=== PATIENT | female | born 1975 | race American Indian/Alaskan Native ===

== ENCOUNTER 2021-06-05 18:39 | Emergency (ER) | payer SELFPAY ==
[2021-06-05 18:48] VITALS: BP 155/95
[2021-06-05] MEDS ORDERED: CETIRIZINE 10 MG TAB PO ONE (21:31)
[2021-06-05] MEDS ORDERED: predniSONE 50 MG TAB PO ONE (21:31)
[2021-06-05] MEDS ORDERED: diphenhydrAMINE 25 MG CAP PO ONE (21:31)
[2021-06-05] MEDS ORDERED: ACETAMINOPHEN 325 MG TAB PO ONE (21:32)
--- NOTE | 2021-06-05 21:53 | Emergency Department Report ---
- General Chief Complaint: Nosebleed Stated Complaint: NOSE BLEED Source: patient Mode of arrival: Ambulatory Limitations: No Limitations - History of Present Illness Initial Comments: Patient is a 45-year-old -Armenian female with no past medical history presented to the ED with complaint of acute onset persistent recurrent nasal and sinus congestion, frontal sinus pressure and intermittent nosebleeds for the last 1 week, worse in the last 2 days. Patient states that the nosebleed occurs in the morning when she blows her nose, and as a result the bleeding continued for at least an hour before it stops. Patient states that in the process she continues to spit up some bloody mucus after the bleeding stops. Patient states that at night she experiences significant nasal congestion and sinus pressure. Patient denies dizziness, syncope, headache, chest pain, fever, chills, cough, nausea and vomiting or sore throat. MD Complaint: rhinorrhea, nasal congestion, sinus pain, other (nosebleed) -: Sudden Severity: moderate Severity scale (0 -10): 6 Quality: dull, aching Consistency: constant Improves With: nothing Worsens With: nothing Associated Symptoms: denies other symptoms, rhinorrhea, nasal congestion, epistaxis. denies: fever, chills, myalgias, diaphoresis, sore throat, stiff neck, cough, chest pain, shortness of breath, abdominal pain, nausea, diarrhea, dysuria, confusion, hoarseness, ear pain, other Treatments Prior to Arrival: none - Related Data Previous Rx's Medication Instructions Recorded Last Taken Type Amoxicillin [Amoxicillin TAB] 875 mg PO Q12H #20 06/05/21 Unknown Rx Cetirizine HCl [Zyrtec 10mg tab] 10 mg PO DAILY #30 06/05/21 Unknown Rx Fluticasone [Flonase] 1 spray NS QDAY #1 bottle 06/05/21 Unknown Rx Ibuprofen [Motrin] 600 mg PO Q8H PRN #20 tablet 06/05/21 Unknown Rx Allergies Allergy/AdvReac Type Severity Reaction Status Date / Time No Known Allergies Allergy Verified 06/05/21 18:45 ED Review of Systems ROS: Stated complaint: NOSE BLEED Other details as noted in HPI Constitutional: denies: chills, fever Eyes: denies: eye pain, eye discharge, vision change ENT: epistaxis, congestion, other (Frontal sinus pressure). denies: ear pain, throat pain Respiratory: denies: cough, shortness of breath, wheezing Cardiovascular: denies: chest pain, palpitations Endocrine: no symptoms reported Gastrointestinal: denies: abdominal pain, nausea, vomiting, diarrhea Genitourinary: denies: urgency, dysuria, discharge Musculoskeletal: denies: back pain, joint swelling, arthralgia Skin: denies: rash, lesions Neurological: denies: headache, weakness, paresthesias Psychiatric: denies: anxiety, depression Hematological/Lymphatic: denies: easy bleeding, easy bruising ED Past Medical Hx - Past Medical History Previous Medical History?: No - Surgical History Past Surgical History?: No - Medications Home Medications: Home Medications Medication Instructions Recorded Confirmed Last Taken Type Amoxicillin [Amoxicillin TAB] 875 mg PO Q12H #20 06/05/21 Unknown Rx Cetirizine HCl [Zyrtec 10mg tab] 10 mg PO DAILY #30 06/05/21 Unknown Rx Fluticasone [Flonase] 1 spray NS QDAY #1 bottle 06/05/21 Unknown Rx Ibuprofen [Motrin] 600 mg PO Q8H PRN #20 tablet 06/05/21 Unknown Rx ED Physical Exam - General Limitations: No Limitations General appearance: alert, in no apparent distress - Head Head exam: Present: atraumatic, normocephalic, normal inspection - Eye Eye exam: Present: normal appearance, PERRL, EOMI Pupils: Present: normal accommodation - ENT ENT exam: Present: normal orophraynx, mucous membranes moist, TM's normal bilaterally, normal external ear exam, other (Grossly congested nasal passages) - Neck Neck exam: Present: normal inspection, full ROM. Absent: tenderness - Respiratory Respiratory exam: Present: normal lung sounds bilaterally. Absent: respiratory distress, wheezes, rhonchi, stridor, chest wall tenderness, accessory muscle use, decreased breath sounds, prolonged expiratory - Cardiovascular Cardiovascular Exam: Present: regular rate, normal rhythm, normal heart sounds. Absent: systolic murmur, diastolic murmur, rubs, gallop - GI/Abdominal GI/Abdominal exam: Present: soft, normal bowel sounds. Absent: tenderness, guarding, rebound, organomegaly, mass - Extremities Exam Extremities exam: Present: normal inspection, full ROM, normal capillary refill - Back Exam Back exam: Present: normal inspection, full ROM. Absent: tenderness, CVA tenderness (R), CVA tenderness (L), muscle spasm, paraspinal tenderness, vertebral tenderness - Neurological Exam Neurological exam: Present: alert, oriented X3, CN II-XII intact, normal gait, reflexes normal - Psychiatric Psychiatric exam: Present: normal affect, normal mood - Skin Skin exam: Present: warm, dry, intact, normal color. Absent: rash ED Course Vital Signs 06/05/21 18:47 Temperature 98.8 F Pulse Rate 76 Respiratory 18 Rate Blood Pressure 155/95 O2 Sat by Pulse 100 Oximetry ED Medical Decision Making - Medical Decision Making This is a 45-year-old -Armenian female with no past medical history presented to the ED with complaint of acute onset persistent recurrent nasal and sinus congestion, frontal sinus pressure and intermittent nosebleeds for the last 1 week, worse in the last 2 days. Patient states that the nosebleed occurs in the morning when she blows her nose, and as a result the bleeding continued for at least an hour before it stops. Patient states that in the process she continues to spit up some bloody mucus after the bleeding stops. Patient states that at night she experiences significant nasal congestion and sinus pressure. In the ED, patient is alert and oriented x3 and is not in any distress. Patient history and physical exam findings, the patient was treated in the ED for congestion and discharged home on medications. Patient's nosebleed is likely traumatic due to persistent blowing of her nose when it is blocked. Patient will discharge home on medications and advised to follow-up with her primary care physician in 7 to 10 days for reevaluation return to the ED immediately if symptoms get worse. - Differential Diagnosis Sinusitis; URI; rhinitis; nosebleed Critical care attestation.: If time is entered above; I have spent that time in minutes in the direct care of this critically ill patient, excluding procedure time. ED Disposition Clinical Impression: Chronic allergic rhinitis, Frequent nosebleeds, Acute upper respiratory infection, Acute bacterial sinusitis Disposition: 01 HOME / SELF CARE / HOMELESS Is pt being admited?: No Does the pt Need Aspirin: No Condition: Stable Instructions: Sinusitis, Adult, [id number], Upper Respiratory Infection, Adult, [id number], Allergic Rhinitis, Adult, [id number], Nosebleed, [id number] Additional Instructions: Take medication with food, drink plenty fluids and follow-up with your primary care physician in 7 to 10 days for reevaluation. Return to the ED immediately if symptoms get worse. Prescriptions: Amoxicillin [Amoxicillin TAB] 875 mg PO Q12H #20 Fluticasone [Flonase] 1 spray NS QDAY #1 bottle Ibuprofen [Motrin] 600 mg PO Q8H PRN #20 tablet PRN Reason: Pain Cetirizine HCl [Zyrtec 10mg tab] 10 mg PO DAILY #30 Referrals: [facility] [Provider Group] - 7-10 days Time of Disposition: 21:55 Print Language: SAMMARINESE
== END 2021-06-05 22:22 | disposition home or self-care (01) ==
LOC: ED 18:39
DX: J31.0 Chronic rhinitis (principal); R04.0 Epistaxis; J06.9 Acute upper respiratory infection, unspecified; J01.90 Acute sinusitis, unspecified
CPT/HCPCS: 99282; J7512

== ENCOUNTER 2021-09-17 15:30 | Emergency (ER) | payer OTHER ==
[2021-09-17 17:48] VITALS: BP 146/99
== END 2021-09-17 23:50 | disposition left against medical advice (07) ==
LOC: ED 15:30
DX: R05.9 Cough, unspecified (principal); Z53.21 Procedure and treatment not carried out due to patient leaving prior to being seen by health care provider